=== PATIENT | female | born 1975 | race Caucasian/White ===

== ENCOUNTER 2016-07-17 10:08 | Emergency (ER) | payer OTHER ==
[2016-07-17 10:09] VITALS: BMI 27.4
[2016-07-17 10:16] VITALS: O2SAT 99
--- NOTE | 2016-07-17 11:26 | C.PDOC ---
History Of Present Illness 41-year-old female, presents to the emergency department with complaints of dizziness. Patient states she has been experiencing dizziness intermittently x3 days that is associated with nausea and non-bloody/non-bilious vomiting. Secondary complaint is right knee pain. States she had knee-replacement surgery a few months ago. Patient got out of bed and twisted her knee while episode of dizziness, resulting in swelling and mild pain. Patient denies numbness/weakness , direct knee trauma, fevers, chills, shortness of breath, chest pain, back pain or any other associated symptoms. No other complaints at this time. Time Seen by Provider: 07/17/16 10:22 Chief Complaint (Nursing): Abdominal Pain History Per: Patient History/Exam Limitations: no limitations Current Symptoms Are (Timing): Still Present Past Medical History Reviewed: Historical Data, Nursing Documentation, Vital Signs Vital Signs: Last Vital Signs Temp 98.3 F 07/17/16 10:15 Pulse 97 H 07/17/16 10:15 Resp 18 07/17/16 10:15 BP 122/84 07/17/16 10:15 Pulse Ox 99 07/17/16 12:07 - Medical History PMH: Anxiety, Arthritis, Asthma, Back Problems (Herniated Disc), Depression, Chronic Pain (Back) Surgical History: Back Surgery () Family History: States: Unknown Family Hx - Social History Hx Tobacco Use: Yes Hx Alcohol Use: No Hx Substance Use: No - Immunization History Hx Tetanus Toxoid Vaccination: No Hx Influenza Vaccination: Yes (2015) Hx Pneumococcal Vaccination: Yes Review Of Systems Except As Marked, All Systems Reviewed And Found Negative. Constitutional: Negative for: Fever, Chills Cardiovascular: Negative for: Chest Pain, Palpitations Respiratory: Negative for: Shortness of Breath Gastrointestinal: Positive for: Nausea, Vomiting Musculoskeletal: Positive for: Leg Pain (R knee). Negative for: Neck Pain, Back Pain Neurological: Positive for: Dizziness. Negative for: Weakness, Numbness Physical Exam - Physical Exam Appears: Non-toxic, No Acute Distress Skin: Warm, Dry, No Rash Head: Atraumatic, Normacephalic Eye(s): bilateral: Other (FAST HORIZONTAL NYSTAGMUS. ) Nose: Normal Oral Mucosa: Moist Lips: Normal Appearing Neck: Normal ROM Cardiovascular: Rhythm Regular Respiratory: Normal Breath Sounds, No Accessory Muscle Use Extremity: Swelling (RIGHT KNEE: HEALED VERTICAL SURGICAL SCAR. NO ERYTHEMA/ DISCHARGE. ) Neurological/Psych: Oriented x3, Normal Speech ED Course And Treatment O2 Sat by Pulse Oximetry: 99 Pulse Ox Interpretation: Normal Reevaluation Time: 14:33 Reassessment Condition: Improved Medical Decision Making Medical Decision Making: Impression Dizziness. R knee pain s/p inversion injury. Plan: * X-Ray R Knee * Antivert, Motrin, Zofran * Reassess and Disposition Disposition Counseled Patient/Family Regarding: Diagnosis, Need For Followup, Rx Given - Disposition Referrals: YOUR,PMD [Other] Disposition: HOME/ ROUTINE Disposition Time: 14:33 Condition: IMPROVED Prescriptions: Meclizine [Antivert] 50 mg PO TID PRN #15 tab PRN Reason: Dizziness Ibuprofen [Motrin] 600 mg PO Q6 #30 tab Acetaminophen [Tylenol Extra Strength] 2 tab PO Q6 #30 tablet Ondansetron [Zofran Odt] 4 mg PO TID PRN #9 odt PRN Reason: Nausea/Vomiting Instructions: Vertigo (ED), Knee Sprain (ED) Print Language: SERBIAN - Clinical Impression Clinical Impression: Nausea, Vertigo, Knee sprain - Scribe Statement The provider has reviewed the documentation as recorded by the Graceibkerrie Locke All medical record entries made by the rGaceibkerrie were at my direction and personally dictated by me. I have reviewed the chart and agree that the record accurately reflects my personal performance of the history, physical exam, medical decision making, and the department course for this patient. I have also personally directed, reviewed, and agree with the discharge instructions and disposition.
--- NOTE | 2016-07-17 11:40 | RAD ---
PROCEDURE: Right Knee Radiographs. HISTORY: COMPARISON: None available. FINDINGS: Right knee arthroplasty. No acute displaced fracture or dislocation identified. Soft tissue swelling. Small suprapatellar joint effusion. IMPRESSION: Soft tissue swelling. Small suprapatellar joint effusion. Right knee arthroplasty. No acute displaced fracture or dislocation identified. If symptoms persist or if there is continued clinical concern, x-ray follow-up in 7-10 days should be considered.
[2016-07-17 15:04] VITALS: BP 107/73; PULSE 74; RESP 20; TEMP 98
== END 2016-07-17 15:04 | disposition home or self-care (01) ==
LOC: C.ER 10:08 → UNDOADMOB 11:21 → C.9E 11:21 → C.ER 15:04
DX: R42 Dizziness and giddiness (principal); R11.0 Nausea; S83.91XA Sprain of unspecified site of right knee, initial encounter; X50.1XXA Overexertion from prolonged static or awkward postures, initial encounter

== ENCOUNTER 2016-09-06 12:05 | Observation (INO) | payer OTHER ==
[2016-09-06 12:06] VITALS: BMI 27.4
[2016-09-06] MEDS: Albuterol-Ipratrop 3 mg / 0.5 (3 ml) UD IH SCH ×2 (13:52→14:35)
[2016-09-06] MEDS ORDERED: Albuterol-Ipratrop 3 mg / 0.5 (3 ml) UD ONE ×3 (13:54→15:52)
--- NOTE | 2016-09-06 14:00 | RAD ---
HISTORY: cough brown sputum COMPARISON: X-ray performed 06/16/15 TECHNIQUE: Chest PA and lateral FINDINGS: LUNGS: No focal consolidation. Please note that chest x-ray has limited sensitivity for the detection of pulmonary masses. PLEURA: No significant pleural effusion identified. No definite pneumothorax . CARDIOVASCULAR: The cardiomediastinal silhouette appears within normal limits of size. OSSEOUS STRUCTURES: Cervical fusion hardware. VISUALIZED UPPER ABDOMEN: Unremarkable. OTHER FINDINGS: None. IMPRESSION: No focal consolidation, significant pleural effusion, or definite pneumothorax identified.
--- NOTE | 2016-09-06 15:25 | C.PDOC ---
History Of Present Illness 41 yr old female with PMHx of asthma, presents to the ER stating last night she started coughing and SOB. Patient reports cough with brown sputum. Reports she used her pump which helped but this morning woke up and javier symptoms were back. Patient reports she was admitted 1 month and has multiple prior admission but no history of intubation. Patient denies fever, chest pain, nausea, vomiting, weakness or numbness. Time Seen by Provider: 09/06/16 12:42 Chief Complaint (Nursing): Shortness Of Breath History Per: Patient History/Exam Limitations: no limitations Onset/Duration Of Symptoms: Days (1) Current Symptoms Are (Timing): Still Present Past Medical History Reviewed: Historical Data, Nursing Documentation, Vital Signs Vital Signs: Last Vital Signs Temp 97.5 F L 09/06/16 18:31 Pulse 100 H 09/06/16 18:31 Resp 20 09/06/16 18:31 BP 127/78 09/06/16 18:31 Pulse Ox 97 09/06/16 18:31 - Medical History PMH: Anxiety, Arthritis, Asthma, Back Problems (Herniated Disc), Depression, Chronic Pain (Back) Surgical History: Back Surgery () Family History: States: No Known Family Hx - Social History Hx Tobacco Use: Yes Hx Alcohol Use: No Hx Substance Use: No - Immunization History Hx Influenza Vaccination: Yes (2015) Hx Pneumococcal Vaccination: Yes Review Of Systems Except As Marked, All Systems Reviewed And Found Negative. Constitutional: Negative for: Fever Cardiovascular: Negative for: Chest Pain Respiratory: Positive for: Cough, Shortness of Breath, Sputum (Brown ) Gastrointestinal: Negative for: Nausea, Vomiting Neurological: Negative for: Weakness, Numbness Physical Exam - Physical Exam Appears: Well, Non-toxic, No Acute Distress Skin: Warm, Dry, No Rash Head: Atraumatic, Normacephalic Eye(s): bilateral: Normal Inspection, PERRL, EOMI Oral Mucosa: Moist Neck: Supple Chest: Symmetrical, No Tenderness Cardiovascular: Rhythm Regular, No Murmur Respiratory: Decreased Breath Sounds, Wheezing (Bilateral) Gastrointestinal/Abdominal: Normal Exam, Soft, No Tenderness, No Mass, No Guarding, No Rebound Extremity: Normal ROM, No Swelling Neurological/Psych: Oriented x3, Normal Speech, Normal Motor ED Course And Treatment - Laboratory Results Result Diagrams: 09/06/16 15:55 09/06/16 15:55 O2 Sat by Pulse Oximetry: 100 - Other Rad CXR X-Ray: Viewed By Me, Read By Radiologist Interpretation: HISTORY: cough brown sputum. COMPARISON: X-ray performed 06/15. TECHNIQUE: Chest PA and lateral. FINDINGS: LUNGS: No focal consolidation. Please note that chest x-ray has limited sensitivity for the detection of pulmonary masses. PLEURA: No significant pleural effusion identified. No definite pneumothorax . CARDIOVASCULAR: The cardiomediastinal silhouette appears within normal limits of size. OSSEOUS STRUCTURES: Cervical fusion hardware. VISUALIZED UPPER ABDOMEN: Unremarkable. OTHER FINDINGS: None. IMPRESSION: No focal consolidation, significant pleural effusion, or definite pneumothorax identified. Medical Decision Making Medical Decision Making: PLAN: * CXR * CBC * CMP * HCG * Urinalysis * Albuterol IH * Dilaudid PO * Prednisone PO * Solumedrol IVP Post multiple treatments still SOB with any exertion, with diffuse ronchi Pt will need observation for SOB/Asthma Discussed with dr Cosby who agrees with plan Disposition - Disposition Disposition: HOSPITALIZED Disposition Time: 16:00 Condition: FAIR - Clinical Impression Clinical Impression: Chronic pain, Asthma exacerbation - Scribe Statement The provider has reviewed the documentation as recorded by the Graceibkerrie Rodriguez Provider Attestation: All medical record entries made by the Graceibkerrie were at my direction and personally dictated by me. I have reviewed the chart and agree that the record accurately reflects my personal performance of the history, physical exam, medical decision making, and the department course for this patient. I have also personally directed, reviewed, and agree with the discharge instructions and disposition.
[2016-09-06 16:00] LABS: BASO % 0.4 % (0.0-2.0); EOS % 0.7 % (0.0-4.0); HEMATOCRIT 43.7 % (34.0-47.0); LYMPH # 1.2 K/uL (1.0-4.3); LYMPH % 23.5 % (20.0-40.0); MEAN CELL VOLUME 85.5 fL (81.0-99.0); MEAN CORPUSCULAR HEMOGLOBIN 28.4 pg (27.0-31.0); MEAN CORPUSCULAR HGB CONC 33.2 g/dL (33.0-37.0); MEAN PLATELET VOLUME 8.4 fL (7.2-11.7); MONO # 0.2 K/uL (0.0-0.8); MONO % 4.2 % (0.0-10.0); RED CELL DISTRIBUTION WIDTH 13.7 % (11.5-14.5)
[2016-09-06 16:06] LABS: CHLORIDE 103 mmol/L (98-107); SODIUM 136 mmol/L (132-148)
[2016-09-06 16:07] LABS: POTASSIUM 3.7 mmol/L (3.6-5.2)
[2016-09-06 16:09] LABS: ALB/GLOB RATIO 1.3 (1.0-2.1); ALKALINE PHOSPHATASE 67 U/L (38-126); AST/SGOT 20 U/L (14-36); BILIRUBIN,TOTAL 0.5 mg/dL (0.2-1.3); BLOOD UREA NITROGEN 12 mg/dL (7-17); CARBON DIOXIDE 22 mmol/L (22-30); GFR AFRICAN-AMERICAN > 60; TOTAL PROTEIN 6.9 g/dL (6.3-8.3)
[2016-09-06 16:10] LABS: ALT/SGPT 21 U/L (9-52); CALCIUM 8.4 mg/dl (8.6-10.4); GLUCOSE,RANDOM 107 mg/dL (65-105)
[2016-09-06] MEDS: Albuterol 0.083% Inhal Sol (2.5 mg/3 mL) UD INH SCH ×3 (16:10→16:30)
[2016-09-06] MEDS ORDERED: Magnesium Sulfate 1 gm in D5W 1 GM/100 ML BAG IV ONE ×2 (16:54→16:55)
[2016-09-06] MEDS ORDERED: Magnesium Sulfate 1 gm in D5W 2 GM/200 ML BAG IVPB ONE (17:15)
[2016-09-06] MEDS ORDERED: MethylPREDNISolone 40 mg Vial IVP STA (18:54)
[2016-09-06] MEDS ORDERED: MethylPREDNISolone 40 mg Vial IV SCH (22:00)
[2016-09-06] MEDS: MethylPREDNISolone 40 mg Vial IVP SCH (22:13)
[2016-09-06] MEDS: Azithromycin 500 MG in Sodium Chloride 0.9% 250 ML IVPB SCH (22:13)
[2016-09-07] MEDS: Albuterol-Ipratrop 3 mg / 0.5 (3 ml) UD INH SCH ×4 (01:05→19:43)
--- NOTE | 2016-09-07 04:24 | CP.PCM.PN ---
Subjective - Date & Time of Evaluation Date of Evaluation: 09/07/16 Time of Evaluation: 04:21 - Subjective Subjective: HOUSE DOC NOTE House doc was paged as patient was having multiple episodes of emesis. Patient was given 1 dose of zofran but vomiting and nausea did not subside. Nursing was concerned patient was having bilious emesis but when I examined vomitus it looked more like food contents and yellow. Patient reported some epigastric pain. Patient was kept NPO and started on NS @ 100cc/hr. Protonix 40mg ivp was ordered. Patient's vitals were WNL and she was resting comfortably although a bit anxious. Abdominal exam : Patient's abdomen was soft, nondistended, tender to deep palpation diffusely. No guarding or rigidity or palpable mass. Bowel sounds present. Will contact primary physician in the AM. Objective - Vital Signs/Intake and Output Vital Signs (last 24 hours): Temp Pulse Resp BP Pulse Ox 98.2 F 91 H 20 149/81 96 09/07/16 00:00 09/07/16 00:00 09/07/16 00:00 09/07/16 00:00 09/07/16 00:00 Intake and Output: 09/06/16 09/07/16 18:59 06:59 Intake Total 200 370 Balance 200 370 - Medications Medications: Current Medications Albuterol/Ipratropium (Duoneb 3 Mg/0.5 Mg (3 Ml) Ud) 3 ml INH RQ6 [facility] Last Admin: 09/07/16 01:05 Dose: Not Given Baclofen (Lioresal) 20 mg PO DAILY [facility] Docusate Sodium (Colace) 100 mg PO BID [facility] Last Admin: 09/06/16 22:14 Dose: 100 mg Enoxaparin Sodium (Lovenox) 40 mg SC DAILY [facility] Fentanyl (Duragesic) 1 patch TD Q72H [facility] Gabapentin (Neurontin) 400 mg PO TID [facility] Haloperidol (Haldol) 0.5 mg PO HS [facility] Last Admin: 09/06/16 22:09 Dose: 0.5 mg Hydromorphone HCl (Dilaudid) 4 mg PO Q8H [facility] Last Admin: 09/06/16 23:16 Dose: 4 mg Azithromycin 500 mg/ Sodium (Chloride) 250 mls @ 250 mls/hr IVPB DAILY [facility] Last Admin: 09/06/16 22:13 Dose: 250 mls/hr Sodium Chloride (Sodium Chloride 0.9%) 1,000 mls @ 100 mls/hr IV .Q10H [facility] Methylprednisolone (Solu-Medrol) 40 mg IVP Q12H [facility] Last Admin: 09/06/16 22:13 Dose: 40 mg Pantoprazole Sodium (Protonix Inj) 40 mg IVP STAT STA Stop: 09/07/16 04:21 Paroxetine HCl (Paxil) 10 mg PO DAILY [facility] Pneumococcal Polyvalent Vaccine (Pneumovax 23 Vaccine) 0.5 ml IM .ONCE ONE Stop: 09/08/16 10:01
[2016-09-07] MEDS: Sodium Chloride 0.9% 1,000 ML IV SCH ×2 (04:43→14:30)
[2016-09-07 08:25] LABS: MEAN CORPUSCULAR HEMOGLOBIN 28.7 pg (27.0-31.0); MEAN CORPUSCULAR HGB CONC 33.3 g/dL (33.0-37.0); MEAN PLATELET VOLUME 8.5 fL (7.2-11.7); RED CELL DISTRIBUTION WIDTH 13.5 % (11.5-14.5)
[2016-09-07 08:32] LABS: WHITE BLOOD COUNT 18.6 K/uL (4.8-10.8)
[2016-09-07 08:46] LABS: CHLORIDE 105 mmol/L (98-107)
[2016-09-07 08:47] LABS: POTASSIUM 4.3 mmol/L (3.6-5.2); SODIUM 140 mmol/L (132-148)
[2016-09-07 08:49] LABS: ALB/GLOB RATIO 1.3 (1.0-2.1); ALKALINE PHOSPHATASE 61 U/L (38-126); AST/SGOT 15 U/L (14-36); BILIRUBIN,TOTAL 0.4 mg/dL (0.2-1.3); CARBON DIOXIDE 27 mmol/L (22-30); GFR AFRICAN-AMERICAN > 60; TOTAL PROTEIN 6.8 g/dL (6.3-8.3)
[2016-09-07 08:50] LABS: ALT/SGPT 17 U/L (9-52); BLOOD UREA NITROGEN 14 mg/dL (7-17); CALCIUM 8.4 mg/dl (8.6-10.4); GLUCOSE,RANDOM 137 mg/dL (65-105)
[2016-09-07] MEDS: Azithromycin 500 MG in Sodium Chloride 0.9% 250 ML IVPB SCH (10:35)
[2016-09-07] MEDS: MethylPREDNISolone 40 mg Vial IVP SCH ×3 (11:00→21:25)
--- NOTE | 2016-09-07 11:02 | CT ---
PROCEDURE: CT chest dated 09/06/2016 HISTORY: Rule out pneumonia. COMPARISON: Comparison made with prior study dated 12/11/2014 TECHNIQUE: Contiguous axial images were obtained through the chest without intravenous contrast enhancement. Sagittal and coronal reconstructions were performed. Radiation dose (DLP): 278.69 mGy-cm. This CT exam was performed using one or more of the following dose reduction techniques: Automated exposure control, adjustment of the mA and/or kV according to patient size, and/or use of iterative reconstruction technique. FINDINGS: LUNGS: There is a somewhat linear area of opacification right lower lobe likely representing subsegmental atelectasis. . The possibility of resolving or developing infiltrate not excluded. Clinic correlation follow-up chest x-ray is recommended to assess resolution. There is also a mild linear/ curvilinear atelectasis and or scarring in the lung bases. Vague mosaic appearing ground-glass opacities in the lower lung richards could reflect of sequela of air trapping - small airways disease or possibly pneumonitis. . No evidence of pneumothorax. No significant effusion MEDIASTINUM: Heart size is upper limits of normal/ borderline enlarged. No pericardial effusion. Motion artifact limits evaluation of aortic ascending and descending thoracic aorta diameter however no evidence of large aneurysm. No significant mediastinal adenopathy. Evaluation for hilar adenopathy is limited due to the lack of circulating intravenous contrast material. There is a tiny hiatal hernia. PLEURA: No pleural fluid. No pneumothorax. BONES: No acute compression fractures nor retropulsed fragments visualized vertebral body segments appear intact without evidence of acute or chronic compression fractures nor retropulsed fragments. Minor multilevel degenerative spondylosis. Note made of ACDF changes rolf involving the C6 and C7 segments. UPPER ABDOMEN: Visualized portions of the liver and spleen appear grossly unremarkable. Large amount of of food debris liquid and air is present within the stomach. Gallbladder appears to be no contracted and poorly delineated OTHER FINDINGS: None. IMPRESSION: There is a small area of linear opacification right lower lung field which could represent subsegmental atelectasis. Possibility of resolving or developing infiltrate not excluded. Clinical correlation recommended. Followup chest radiographs recommended to assess for resolution. Vague mosaic appearing ground-glass opacities predominately involving the lower lobes could reflect sequela of air trapping-small airway disease or possibly pneumonitis. Clinic correlation recommended. ACDF changes C6-C7 level.
--- NOTE | 2016-09-07 14:56 | RAD ---
HISTORY: abdominal pain COMPARISON: Comparison made with CT scan abdomen and pelvis 05/31/2016. FINDINGS: BOWEL: There are multiple on air-filled nondistended loops of small bowel nonspecific. Large amount of stool is present within the right colon and probably the cecum on or possibly rectosigmoid consistent with constipation. . BONES: Osseous structures appear grossly unremarkable. OTHER FINDINGS: None. IMPRESSION: Findings suggest constipation as above. .
[2016-09-07 16:16] LABS: RBC URINE < 1 /hpf (0-3); URINE BACTERIA RARE (<OCC); URINE BILIRUBIN NEGATIVE (NEGATIVE); URINE BLOOD 1+ (NEGATIVE); URINE COLOR Yellow (YELLOW); URINE GLUCOSE (UA) 3+ mg/dL (Normal); URINE KETONE TRACE mg/dL (NEGATIVE); URINE LEUKOCYTE ESTERASE NEG Leu/uL (Negative); URINE PROTEIN NEGATIVE (NEGATIVE); URINE UROBILINOGEN NORMAL mg/dL (0.2-1.0); WBC URINE 2 /hpf (0-5)
[2016-09-07] MEDS: Enoxaparin 40 mg Syringe SC SCH (19:53)
--- NOTE | 2016-09-07 22:27 | CP.PCM.HP ---
History of Present Illness - History of Present Illness History of Present Illness: A 41 yr old female with hx of chronic lumbar and cervical disc disease s\\p sx on pain meds ,smoker,depression\\anxiety on meds came with hx of SOB ad wheezing for few days with cold symptoms.took OTC meds was not helping after being admitted feeling nausea ,vomiting mostly clear,with food Present on Admission - Present on Admission Any Indicators Present on Admission: No Review of Systems - Constitutional Constitutional: Malaise, Weight Loss. absent: Chills, Fever Additional comments: notes she lost 60 lbs over few months - EENT Nose/Mouth/Throat: absent: Nasal Congestion, Sore Throat - Cardiovascular Cardiovascular: Dyspnea. absent: Chest Pain, Leg Edema, Rapid Heart Rate - Respiratory Respiratory: Cough, Wheezing, Chest Congestion, Excessive Mucous Production. absent: Hemoptysis - Gastrointestinal Gastrointestinal: Abdominal Pain, Constipation, Nausea, Vomiting, Other - Genitourinary Genitourinary: absent: Nocturia, Urinary Frequency - Musculoskeletal Musculoskeletal: Arthralgias, Limited Range of Motion, Neck Pain, Tingling - Integumentary Integumentary: absent: Alopecia, Lesions, Sores - Neurological Neurological: Headaches. absent: Dizziness - Psychiatric Psychiatric: absent: Hallucinations Past Patient History - Infectious Disease Hx of Infectious Diseases: None - Past Medical History & Family History Past Medical History?: Yes - Past Social History Smoking Status: Heavy Smoker > 10 Cigarettes Daily - CARDIAC Hx Cardiac Disorders: No - PULMONARY Hx Asthma: Yes - NEUROLOGICAL Hx Neurological Disorder: No - HEENT Hx HEENT Problems: No Other/Comment: uses eyelasses - RENAL Hx Chronic Kidney Disease: No - ENDOCRINE/METABOLIC Hx Endocrine Disorders: No - HEMATOLOGICAL/ONCOLOGICAL Hx Blood Disorders: No - INTEGUMENTARY Hx Dermatological Problems: No - MUSCULOSKELETAL/RHEUMATOLOGICAL Hx Arthritis: Yes - GASTROINTESTINAL Hx Gastrointestinal Disorders: No - GENITOURINARY/GYNECOLOGICAL Hx Genitourinary Disorders: No - PSYCHIATRIC Hx Anxiety: Yes Hx Depression: Yes Hx Substance Use: No - SURGICAL HISTORY Hx Surgeries: Yes (SEE COMMENT) Hx Orthopedic Surgery: Yes Other/Comment: CERVICAL SX WITH HARDWARE; TOTAL RIGHT KNEE REPLACEMENT. "laminectomy and cervical fusion" - ANESTHESIA Hx Anesthesia: Yes Hx Anesthesia Reactions: No Hx Malignant Hyperthermia: No Meds Allergies/Adverse Reactions: Allergies Allergy/AdvReac Type Severity Reaction Status Date / Time No Known Allergies Allergy Verified 09/06/16 12:33 Physical Exam - Constitutional Appears: No Acute Distress - Head Exam Head Exam: NORMAL INSPECTION - Eye Exam Eye Exam: EOMI, PERRL. absent: Scleral icterus - ENT Exam ENT Exam: Mucous Membranes Moist, Normal Exam - Neck Exam Neck exam: Negative for: Lymphadenopathy - Respiratory Exam Respiratory Exam: Wheezes. absent: Chest Wall Tenderness, Rhonchi Additional comments: RLL rales - Cardiovascular Exam Cardiovascular Exam: REGULAR RHYTHM, +S1, +S2. absent: JVD - GI/Abdominal Exam GI & Abdominal Exam: Normal Bowel Sounds, Soft, Tenderness Additional comments: epigastric - Extremities Exam Extremities exam: Positive for: normal inspection, pedal pulses present - Back Exam Back exam: NORMAL INSPECTION - Neurological Exam Neurological exam: Alert, Oriented x3 - Psychiatric Exam Psychiatric exam: Normal Mood - Skin Skin Exam: Intact Results - Vital Signs Recent Vital Signs: Last Vital Signs Temp 98.0 F 09/07/16 15:11 Pulse 71 09/07/16 15:11 Resp 18 09/07/16 15:11 BP 126/83 09/07/16 15:11 Pulse Ox 96 09/07/16 15:11 - Labs Result Diagrams: 09/07/16 08:17 09/07/16 08:17 Labs: Laboratory Results - last 24 hr 09/07/16 09/07/16 09/07/16 08:17 08:17 08:17 WBC 18.6 H D RBC 4.99 Hgb 14.3 Hct 43.0 MCV 86.0 MCH 28.7 MCHC 33.3 RDW 13.5 Plt Count 246 MPV 8.5 Sodium 140 Potassium 4.3 Chloride 105 Carbon Dioxide 27 Anion Gap 14 BUN 14 Creatinine 0.6 L Est GFR ( Amer) > 60 Est GFR (Non-Af Amer) > 60 Random Glucose 137 H Hemoglobin A1c 5.6 Calcium 8.4 L Total Bilirubin 0.4 AST 15 ALT 17 Alkaline Phosphatase 61 Total Protein 6.8 Albumin 3.8 Globulin 2.9 Albumin/Globulin Ratio 1.3 Urine Color Urine Clarity Urine pH Ur Specific [place] Urine Protein Urine Glucose (UA) Urine Ketones Urine Blood Urine Nitrate Urine Bilirubin Urine Urobilinogen Ur Leukocyte Esterase Urine WBC (Auto) Urine RBC (Auto) Ur Squamous Epith Cells Urine Bacteria Urine HCG, Qual 09/07/16 15:57 WBC RBC Hgb Hct MCV MCH MCHC RDW Plt Count MPV Sodium Potassium Chloride Carbon Dioxide Anion Gap BUN Creatinine Est GFR ( Amer) Est GFR (Non-Af Amer) Random Glucose Hemoglobin A1c Calcium Total Bilirubin AST ALT Alkaline Phosphatase Total Protein Albumin Globulin Albumin/Globulin Ratio Urine Color Yellow Urine Clarity Clear Urine pH 6.0 Ur Specific [place] 1.022 Urine Protein Negative Urine Glucose (UA) 3+ H Urine Ketones Trace Urine Blood 1+ H Urine Nitrate Negative Urine Bilirubin Negative Urine Urobilinogen Normal Ur Leukocyte Esterase Neg Urine WBC (Auto) 2 Urine RBC (Auto) < 1 Ur Squamous Epith Cells 4 Urine Bacteria Rare Urine HCG, Qual Negative - Imaging and Cardiology CT scan - chest Status: Report reviewed by me Chest x-ray Status: Report reviewed by me Assessment & Plan (1) Asthma exacerbation Status: Acute (2) Nausea and vomiting Status: Acute (3) Weight loss Status: Acute (4) Tobacco use Status: Chronic (5) Chronic low back pain Status: Acute (6) Constipation Status: Acute - Assessment and Plan (Free Text) Plan: 1. iv solumedrol 2. iv zithromax being smoker CT chest showed- possible infiltrate \\pneumonitis 3. stool softeners tap water enema AXR 4. nausea and vomiting NPO CT abdomen and pelvis -as she has significant weight loss ivf panteprazole 5.resume pain meds Decision To Admit - Pt Status Changed To: Hospital Disposition Of: Inpatient - Admit Certification Admit to Inpatient:: After my assessment, the patient will require hospitalization for at least two midnights. This is because of the severity of symptoms shown, intensity of services needed, and/or the medical risk in this patient being treated as an outpatient. - InPatient: Physician Admission Certification:: as above - . Bed Request Type: Regular (aurelio) Admitting Physician: Farzana Cosby
[2016-09-08 01:04] VITALS: RESP 20
[2016-09-08] MEDS: Albuterol-Ipratrop 3 mg / 0.5 (3 ml) UD INH SCH ×4 (02:00→19:33)
[2016-09-08 08:07] LABS: CARCINOEMBRYONIC ANTIGEN 0.4 ng/mL (0-3.0)
[2016-09-08 08:11] LABS: CA 19-9 4.2 U/mL (0-37)
[2016-09-08] MEDS ORDERED: Iohexol 240 (50 ml) PO ONE (09:00)
[2016-09-08] MEDS: Azithromycin 500 MG in Sodium Chloride 0.9% 250 ML IVPB SCH (09:52)
[2016-09-08] MEDS: Enoxaparin 40 mg Syringe SC SCH (09:53)
[2016-09-08] MEDS ORDERED: Pneumococcal 23-Valent Vaccine IM ONE (10:00)
[2016-09-08] MEDS ORDERED: Iodixanol 320 MG/ML 100 ML BOTTLE IV ONE (14:05)
--- NOTE | 2016-09-08 15:35 | CT ---
PROCEDURE: CT Abdomen and Pelvis with contrast HISTORY: weight loss and abdomnal pain COMPARISON: 05/31/2016 TECHNIQUE: Contrast dose: 100 mL Visipaque 320 Radiation dose: Total exam DLP = 419.36 mGy-cm. This CT exam was performed using one or more of the following dose reduction techniques: Automated exposure control, adjustment of the mA and/or kV according to patient size, and/or use of iterative reconstruction technique. FINDINGS: LOWER THORAX: Nonspecific mosaic attenuation in both lower lobes. Linear scar/ atelectasis in both lower lobes. LIVER: Mild hepatomegaly. No mass. Smooth contour. No biliary ductal dilatation. Mild periportal edema, nonspecific. GALLBLADDER AND BILE DUCTS: Gallbladder wall thickening. No calcified gallstones identified. Recommend correlation with right upper quadrant abdominal ultrasound. PANCREAS: Unremarkable. No gross lesion or ductal dilatation. SPLEEN: Upper limits of normal for size. No focal mass. ADRENALS: Unremarkable. No mass. KIDNEYS AND URETERS: Mid left renal cortical cyst, 1.9 cm diameter. Low-attenuation lesion lower pole left kidney, approximately 2.8 cm. There is irregular border to a portion of this low-attenuation lesion. Correlating with renal ultrasound examination of 05/31/2016, this is suspicious for renal neoplasm. This could also represent complex cyst with internal septation based upon the ultrasound findings of 05/31/2016. Please note that this is unchanged in size and morphology from examination of 11/19/2015. VASCULATURE: Unremarkable. No aortic aneurysm. BOWEL: Unremarkable. No obstruction. No gross mural thickening. APPENDIX: Normal appendix. PERITONEUM: Possible small amount of fluid in left side of cul-de-sac LYMPH NODES: Unremarkable. No enlarged lymph nodes. BLADDER: Unremarkable. REPRODUCTIVE: Small anterior subserosal uterine fibroid, 1.2 cm. BONES: No acute fracture. OTHER FINDINGS: None. IMPRESSION: Mild hepatomegaly. Borderline spleen size. Periportal edema, nonspecific. Gallbladder wall thickening. Recommend correlation with right upper quadrant abdominal ultrasound examination. Linear scar/ atelectasis and nonspecific mosaic attenuation in both lower lobes. 2.8 cm low-density left lower pole renal mass, possibly complex cyst versus cystic neoplasm. Note absent change in size compared to 11/18.
[2016-09-08] MEDS: Sodium Chloride 0.9% 1,000 ML IV SCH (19:38)
[2016-09-08] MEDS: MethylPREDNISolone 40 mg Vial IVP SCH (21:05)
[2016-09-09] MEDS: Albuterol-Ipratrop 3 mg / 0.5 (3 ml) UD INH SCH ×3 (02:00→14:34)
[2016-09-09] MEDS: Sodium Chloride 0.9% 1,000 ML IV SCH ×3 (05:39→16:03)
[2016-09-09] MEDS: Enoxaparin 40 mg Syringe SC SCH (09:49)
[2016-09-09] MEDS: Azithromycin 500 MG in Sodium Chloride 0.9% 250 ML IVPB SCH (09:54)
[2016-09-09 11:52] LABS: BASO % 0.4 % (0.0-2.0); EOS % 0.2 % (0.0-4.0); HEMATOCRIT 40.2 % (34.0-47.0); LYMPH # 2.4 K/uL (1.0-4.3); LYMPH % 25.5 % (20.0-40.0); MEAN CELL VOLUME 85.8 fL (81.0-99.0); MEAN CORPUSCULAR HEMOGLOBIN 28.6 pg (27.0-31.0); MEAN CORPUSCULAR HGB CONC 33.3 g/dL (33.0-37.0); MEAN PLATELET VOLUME 9.1 fL (7.2-11.7); MONO # 0.7 K/uL (0.0-0.8); RED CELL DISTRIBUTION WIDTH 13.5 % (11.5-14.5); WHITE BLOOD COUNT 9.4 K/uL (4.8-10.8)
[2016-09-09 12:05] LABS: CHLORIDE 104 mmol/L (98-107); SODIUM 136 mmol/L (132-148)
[2016-09-09 12:06] LABS: POTASSIUM 3.4 mmol/L (3.6-5.2)
[2016-09-09 12:08] LABS: ALB/GLOB RATIO 1.1 (1.0-2.1); ALKALINE PHOSPHATASE 67 U/L (38-126); ALT/SGPT 37 U/L (9-52); AST/SGOT 30 U/L (14-36); BILIRUBIN,TOTAL 0.3 mg/dL (0.2-1.3); BLOOD UREA NITROGEN 6 mg/dL (7-17); CARBON DIOXIDE 25 mmol/L (22-30); GFR AFRICAN-AMERICAN > 60; GLUCOSE,RANDOM 87 mg/dL (65-105); TOTAL PROTEIN 5.8 g/dL (6.3-8.3)
[2016-09-09 12:09] LABS: CALCIUM 8.1 mg/dl (8.6-10.4)
[2016-09-09] MEDS: MethylPREDNISolone 40 mg Vial IVP SCH (13:17)
[2016-09-09 15:19] VITALS: BP 119/74; PULSE 68; TEMP 98; O2SAT 96
--- NOTE | 2016-09-09 16:42 | CP.PCM.DIS ---
Provider - Provider Date of Admission: 09/06/16 16:55 Attending physician: Farzana Cosby MD Diagnosis - Discharge Diagnosis (1) Asthma exacerbation Status: Acute (2) Nausea and vomiting Status: Acute (3) Weight loss Status: Acute (4) Tobacco use Status: Chronic (5) Chronic low back pain Status: Acute (6) Constipation Status: Acute Hospital Course - Lab Results Lab Results: Most Recent Lab Values WBC 9.4 K/uL (4.8-10.8) 09/09/16 11:43 RBC 4.68 Mil/uL (3.80-5.20) 09/09/16 11:43 Hgb 13.4 g/dL (11.0-16.0) 09/09/16 11:43 Hct 40.2 % (34.0-47.0) 09/09/16 11:43 MCV 85.8 fL (81.0-99.0) 09/09/16 11:43 MCH 28.6 pg (27.0-31.0) 09/09/16 11:43 MCHC 33.3 g/dL (33.0-37.0) 09/09/16 11:43 RDW 13.5 % (11.5-14.5) 09/09/16 11:43 Plt Count 200 K/uL (130-400) 09/09/16 11:43 MPV 9.1 fL (7.2-11.7) 09/09/16 11:43 Neut % (Auto) 66.9 % (50.0-75.0) 09/09/16 11:43 Lymph % (Auto) 25.5 % (20.0-40.0) 09/09/16 11:43 [place] % (Auto) 7.0 % (0.0-10.0) 09/09/16 11:43 Eos % (Auto) 0.2 % (0.0-4.0) 09/09/16 11:43 Baso % (Auto) 0.4 % (0.0-2.0) 09/09/16 11:43 Neut # 6.3 K/uL (1.8-7.0) 09/09/16 11:43 Lymph # 2.4 K/uL (1.0-4.3) 09/09/16 11:43 [place] # 0.7 K/uL (0.0-0.8) 09/09/16 11:43 Eos # 0.0 K/uL (0.0-0.7) 09/09/16 11:43 Baso # 0.0 K/uL (0.0-0.2) 09/09/16 11:43 Sodium 136 mmol/L (132-148) 09/09/16 11:43 Potassium 3.4 mmol/L (3.6-5.2) L 09/09/16 11:43 Chloride 104 mmol/L (98-107) 09/09/16 11:43 Carbon Dioxide 25 mmol/L (22-30) 09/09/16 11:43 Anion Gap 10 (10-20) 09/09/16 11:43 BUN 6 mg/dL (7-17) L 09/09/16 11:43 Creatinine 0.5 MG/DL (0.7-1.2) L 09/09/16 11:43 Est GFR ( Amer) > 60 09/09/16 11:43 Est GFR (Non-Af Amer) > 60 09/09/16 11:43 Random Glucose 87 mg/dL (65-105) 09/09/16 11:43 Hemoglobin A1c 5.6 % (4.2-6.5) 09/07/16 08:17 Calcium 8.1 mg/dl (8.6-10.4) L 09/09/16 11:43 Total Bilirubin 0.3 mg/dL (0.2-1.3) 09/09/16 11:43 AST 30 U/L (14-36) 09/09/16 11:43 ALT 37 U/L (9-52) 09/09/16 11:43 Alkaline Phosphatase 67 U/L (38-126) 09/09/16 11:43 Total Protein 5.8 g/dL (6.3-8.3) L 09/09/16 11:43 Albumin 3.0 g/dL (3.5-5.0) L D 09/09/16 11:43 Globulin 2.8 gm/dL (2.2-3.9) 09/09/16 11:43 Albumin/Globulin Ratio 1.1 (1.0-2.1) 09/09/16 11:43 Carcinoembryonic Ag 0.4 ng/mL (0-3.0) 09/08/16 07:12 CA 19-9 Antigen 4.2 U/mL (0-37) 09/08/16 07:12 CA 125 Antigen < 5.5 U/mL (0-35) 09/08/16 07:12 Urine Color Yellow (YELLOW) 09/07/16 15:57 Urine Clarity Clear (Clear) 09/07/16 15:57 Urine pH 6.0 (5.0-8.0) 09/07/16 15:57 Ur Specific Frannie 1.022 (1.003-1.030) 09/07/16 15:57 Urine Protein Negative mg/dL (NEGATIVE) 09/07/16 15:57 Urine Glucose (UA) 3+ mg/dL (Normal) H 09/07/16 15:57 Urine Ketones Trace mg/dL (NEGATIVE) 09/07/16 15:57 Urine Blood 1+ (NEGATIVE) H 09/07/16 15:57 Urine Nitrate Negative (NEGATIVE) 09/07/16 15:57 Urine Bilirubin Negative (NEGATIVE) 09/07/16 15:57 Urine Urobilinogen Normal mg/dL (0.2-1.0) 09/07/16 15:57 Ur Leukocyte Esterase Neg Idania/uL (Negative) 09/07/16 15:57 Urine WBC (Auto) 2 /hpf (0-5) 09/07/16 15:57 Urine RBC (Auto) < 1 /hpf (0-3) 09/07/16 15:57 Ur Squamous Epith Cells 4 /hpf (0-5) 09/07/16 15:57 Urine Bacteria Rare (<OCC) 09/07/16 15:57 Urine HCG, Qual Negative (NEGATIVE) 09/07/16 15:57 Discharge Exam - Head Exam Head Exam: NORMAL INSPECTION Discharge Plan - Follow Up Plan Condition: FAIR Disposition: HOME/ ROUTINE
--- NOTE | 2016-09-09 16:42 | CP.PCM.PN ---
Subjective - Date & Time of Evaluation Date of Evaluation: 09/08/16 Time of Evaluation: 10:00 Objective - Vital Signs/Intake and Output Vital Signs (last 24 hours): Temp Pulse Resp BP Pulse Ox 98 F 68 20 119/74 96 09/09/16 15:16 09/09/16 15:16 09/09/16 15:16 09/09/16 15:16 09/09/16 15:16 Intake and Output: 09/09/16 09/09/16 06:59 18:59 Intake Total 2200 730 Balance 2200 730 - Medications Medications: Current Medications Albuterol/Ipratropium (Duoneb 3 Mg/0.5 Mg (3 Ml) Ud) 3 ml INH RQ6 [facility] Last Admin: 09/09/16 14:34 Dose: 3 ml Baclofen (Lioresal) 20 mg PO DAILY [facility] Last Admin: 09/09/16 09:49 Dose: 20 mg Diphenhydramine HCl (Benadryl) 50 mg PO HS PRN PRN Reason: Sleep Last Admin: 09/07/16 22:15 Dose: 50 mg Docusate Sodium (Colace) 100 mg PO BID [facility] Last Admin: 09/09/16 09:49 Dose: 100 mg Enoxaparin Sodium (Lovenox) 40 mg SC DAILY [facility] Last Admin: 09/09/16 09:49 Dose: 40 mg Fentanyl (Duragesic) 1 patch TD Q72H [facility] Last Admin: 09/08/16 09:53 Dose: 1 patch Gabapentin (Neurontin) 400 mg PO TID [facility] Last Admin: 09/09/16 13:18 Dose: 400 mg Haloperidol (Haldol) 0.5 mg PO HS [facility] Last Admin: 09/08/16 21:06 Dose: 0.5 mg Azithromycin 500 mg/ Sodium (Chloride) 250 mls @ 250 mls/hr IVPB DAILY [facility] Last Admin: 09/09/16 09:54 Dose: 250 mls/hr Sodium Chloride (Sodium Chloride 0.9%) 1,000 mls @ 100 mls/hr IV .Q10H [facility] Last Admin: 09/09/16 16:03 Dose: Not Given Lactulose (Enulose) 20 gm PO HS [facility] Last Admin: 09/08/16 21:07 Dose: Not Given Methylprednisolone (Solu-Medrol) 40 mg IVP Q12H [facility] Last Admin: 09/09/16 13:17 Dose: 40 mg Morphine Sulfate (Morphine) 2 mg IVP Q6H PRN PRN Reason: SEVERE PAIN 8-10 Last Admin: 09/09/16 16:02 Dose: 2 mg Paroxetine HCl (Paxil) 10 mg PO DAILY [facility] Last Admin: 09/09/16 09:49 Dose: 10 mg - Labs Labs: 09/09/16 11:43 09/09/16 11:43 Assessment and Plan (1) Asthma exacerbation Status: Acute (2) Nausea and vomiting Status: Acute (3) Weight loss Status: Acute (4) Tobacco use Status: Chronic (5) Chronic low back pain Status: Acute (6) Constipation Status: Acute
== END 2016-09-09 20:01 | disposition home or self-care (01) ==
LOC: C.ER 12:05 → C.9E 16:55 → C.5T 17:29
PROVIDERS: ADMIT Internal Medicine; ATTEND Internal Medicine
DX: J45.901 Unspecified asthma with (acute) exacerbation (principal); G89.29 Other chronic pain; K59.00 Constipation, unspecified; Z72.0 Tobacco use; M54.5 Low back pain
CPT/HCPCS: 36415; 71020; 71250; 74000; 74177; 80053; 81001; 82378; 83036; 84703; 85025; 85027; 86301; 86304; 94150; 94640; 94760; 96374; 99285; C9113; G0378; J0456; J1630; J1650; J2270; J2405; J2920; J2930; J3475; J7040; J7050; Q9966; Q9967

== ENCOUNTER 2016-10-08 14:30 | Emergency (ER) | payer OTHER ==
[2016-10-08 14:30] VITALS: BMI 27.4
[2016-10-08 14:44] VITALS: RESP 18
[2016-10-08] MEDS ORDERED: Sodium Chloride 0.9% 1,000 ML IV ONE (15:00)
--- NOTE | 2016-10-08 15:07 | C.PDOC ---
History Of Present Illness 41 year old female presents to the ED with complaints of left flank pain that radiates forward. Patient notes pain began yesterday but has worsened today and has been seen in this ED in the past for similar symptoms. She notes a history of chronic back pain and one episode of vomiting and dysruia. Patient denies any hematuria or fever. Time Seen by Provider: 10/08/16 14:45 Chief Complaint (Nursing): Back Pain History Per: Patient History/Exam Limitations: no limitations Onset/Duration Of Symptoms: Days (since yesterday ) Current Symptoms Are (Timing): Still Present Quality Of Discomfort: "Pain" Previous Symptoms: Chronic Pain (chronic back pain ) Recent travel outside of the [place]: No Past Medical History Reviewed: Historical Data, Nursing Documentation, Vital Signs Vital Signs: Last Vital Signs Temp 98.6 F 10/08/16 17:04 Pulse 81 10/08/16 17:04 Resp 18 10/08/16 17:04 BP 117/81 10/08/16 17:04 Pulse Ox 99 10/08/16 17:04 - Medical History PMH: Anxiety, Arthritis, Asthma, Back Problems (Herniated Disc), Depression, Chronic Pain (Back) Surgical History: Back Surgery () Family History: States: Unknown Family Hx - Social History Hx Tobacco Use: Yes Hx Alcohol Use: No Hx Substance Use: No - Immunization History Hx Tetanus Toxoid Vaccination: No Hx Influenza Vaccination: Yes (2015) Hx Pneumococcal Vaccination: Yes Review Of Systems Constitutional: Negative for: Fever, Chills Cardiovascular: Negative for: Chest Pain, Palpitations Gastrointestinal: Positive for: Vomiting, Abdominal Pain (left flank pain ). Negative for: Diarrhea Genitourinary: Positive for: Dysuria. Negative for: Hematuria Physical Exam - Physical Exam Appears: Non-toxic, No Acute Distress Skin: Warm, Dry Head: Atraumatic Eye(s): bilateral: Normal Inspection Oral Mucosa: Moist Neck: Supple Chest: Symmetrical, No Deformity Cardiovascular: Rhythm Regular Respiratory: Normal Breath Sounds, No Accessory Muscle Use, No Rales, No Rhonchi , No Wheezing Gastrointestinal/Abdominal: Soft, Tenderness (left flank tenderness ), No Distention, No Guarding, No Rebound Extremity: Normal ROM, No Tenderness Neurological/Psych: Oriented x3 ED Course And Treatment - Laboratory Results Result Diagrams: 10/08/16 15:29 10/08/16 15:29 O2 Sat by Pulse Oximetry: 98 (room air ) Medical Decision Making Medical Decision Making: r/o renal colic vs uti/pyleo vs msk pain . review of [place] metal inspector shows multiple narcotic rx including hydromorphone and fentanyl. 450: labs ct neg. pt states feels better. will d/c with outpt f/u. return precautions advised. no saddle anesthesia, neuro intac.t. Disposition - Disposition Referrals: [facility] [Outside] Magdaleno Alcantar MD [Staff Provider] - Gene Espinosa MD [Non-Staff] - Disposition: HOME/ ROUTINE Disposition Time: 05:00 Condition: STABLE Additional Instructions: please follow up with your doctor. return to er with worsening symptoms or concerns. Prescriptions: Naproxen [Naprosyn] 500 mg PO BID PRN #14 tablet PRN Reason: Pain, Mild (1-3) Instructions: Acute Low Back Pain (ED), Flank Pain (ED) - Clinical Impression Clinical Impression: Flank pain - Scribe Statement The provider has reviewed the documentation as recorded by the Scribe Maty Bowles All medical record entries made by the Scribe were at my direction and personally dictated by me. I have reviewed the chart and agree that the record accurately reflects my personal performance of the history, physical exam, medical decision making, and the department course for this patient. I have also personally directed, reviewed, and agree with the discharge instructions and disposition.
[2016-10-08] MEDS ORDERED: Sodium Chloride 0.9% 1,000 ML ONE (15:31)
[2016-10-08 15:33] LABS: BASO # 0.1 K/uL (0.0-0.2); EOS # 0.6 K/uL (0.0-0.7); EOS % 8.2 % (0.0-4.0); HEMOGLOBIN 13.5 g/dL (11.0-16.0); LYMPH # 2.7 K/uL (1.0-4.3); LYMPH % 37.9 % (20.0-40.0); MEAN CELL VOLUME 87.2 fL (81.0-99.0); MEAN CORPUSCULAR HEMOGLOBIN 28.5 pg (27.0-31.0); MEAN CORPUSCULAR HGB CONC 32.7 g/dL (33.0-37.0); MEAN PLATELET VOLUME 8.3 fL (7.2-11.7); MONO # 0.6 K/uL (0.0-0.8); MONO % 8.5 % (0.0-10.0); NEUT # 3.2 K/uL (1.8-7.0); NEUT % 44.4 % (50.0-75.0); RBC 4.74 Mil/uL (3.80-5.20); RED CELL DISTRIBUTION WIDTH 13.8 % (11.5-14.5); WHITE BLOOD COUNT 7.2 K/uL (4.8-10.8)
[2016-10-08 15:41] LABS: ALBUMIN 3.3 g/dL (3.5-5.0)
[2016-10-08 15:44] LABS: GFR AFRICAN-AMERICAN > 60; GFR NON-AFRICAN AMERICAN > 60
[2016-10-08 15:46] LABS: ALB/GLOB RATIO 1.2 (1.0-2.1); ALT/SGPT 26 U/L (9-52); AST/SGOT 21 U/L (14-36); BLOOD UREA NITROGEN 14 mg/dL (7-17); CALCIUM 8.6 mg/dl (8.6-10.4); LIPASE 32 U/L (23-300)
[2016-10-08 15:54] LABS: HCG,QUALITATIVE URINE NEGATIVE (NEGATIVE)
[2016-10-08 15:59] LABS: SQUAMOUS EPITHIAL 26 /hpf (0-5); URINE BILIRUBIN NEGATIVE (NEGATIVE); URINE BLOOD 3+ (NEGATIVE); URINE CLARITY Hazy (Clear); URINE COLOR Yellow (YELLOW); URINE GLUCOSE (UA) NORMAL (Normal); URINE LEUKOCYTE ESTERASE NEG Leu/uL (Negative); URINE NITRATE NEGATIVE (NEGATIVE); URINE PROTEIN NEGATIVE (NEGATIVE); URINE UROBILINOGEN NORMAL mg/dL (0.2-1.0)
--- NOTE | 2016-10-08 16:48 | CT ---
PROCEDURE: CT Abdomen and Pelvis without intravenous contrast HISTORY: left flank pain COMPARISON: Comparison made with prior CT scan abdomen and pelvis 09/08/2016 TECHNIQUE: Contiguous helical/transaxial sections of the abdomen pelvis performed without oral or intravenous contrast material. Additional 2 dimensional sagittal and coronal reformats provided. Radiation dose: Total exam DLP = 367.56 mGy-cm. This CT exam was performed using one or more of the following dose reduction techniques: Automated exposure control, adjustment of the mA and/or kV according to patient size, and/or use of iterative reconstruction technique. FINDINGS: LOWER THORAX: Mild bibasilar atelectasis. Lung richards are otherwise clear without evidence of basilar infiltrate or effusion. LIVER: Liver is upper limits of normal/borderline enlarged measuring approximately 18.2 cm in CC dimension. No obvious hepatic mass collection or calcification. GALLBLADDER AND BILE DUCTS: Gallbladder is is incompletely distended which presumably accounts for thick-walled appearance. Possibility of inflammatory process cannot be excluded. No evidence of intraluminal gallbladder calculi. PANCREAS: Pancreas is poorly seen due to the lack of oral and intravenous contrast material. . No evidence of obvious pancreatic mass collection or calcification. SPLEEN: Spleen exhibits relatively normal size and attenuation pattern. No splenic mass or collection. ADRENALS: No adrenal lesions. KIDNEYS AND URETERS: Kidneys that demonstrate relatively symmetric size. No evidence of nephrolithiasis or hydronephrosis. At least 2 renal cysts are again seen 1 along the anterior mid pole and the other along anteromedial lower pole of unchanged from prior study. No evidence of nephrolithiasis or hydronephrosis. VASCULATURE: Unremarkable. No aortic aneurysm. BOWEL: Evaluation of the bowel is limited due to the lack of oral contrast material. Stomach is distended with air. Visualized loops of small bowel exhibit normal contour and caliber. No evidence small bowel which the. Stool and air seen throughout the colon. No definitive evidence of mural wall thickening APPENDIX: Normal-appearing appendix best seen on axial image number [id number]. PERITONEUM: No gross free intraperitoneal air. No free or loculated fluid collections. LYMPH NODES: Unremarkable. No enlarged lymph nodes. BLADDER: Urinary bladder is incompletely distended which may account for thick-walled appearance. Possibility of a cystitis not excluded. REPRODUCTIVE: Previously noted anterior subserosal fibroid again noted though less well delineated due to the lack of circulating intravenous contrast material. . Questionable small left adnexal cyst estimated approximately 2 cm x 1 cm. BONES: The osseous structures appear grossly intact OTHER FINDINGS: None. IMPRESSION: No evidence of nephrolithiasis or hydronephrosis. Two left renal cysts are again noted though less well seen compared prior contrast-enhanced CT scan. Suspect small left adnexal cyst. Liver is upper limits of normal/borderline enlarged.
[2016-10-08 17:06] VITALS: BP 117/81; PULSE 81; TEMP 98.6
[2016-10-08 20:17] VITALS: O2SAT 98
== END 2016-10-08 17:32 | disposition home or self-care (01) ==
LOC: C.ER 14:30
DX: R10.30 Lower abdominal pain, unspecified (principal)
CPT/HCPCS: 74176; 80053; 81001; 83690; 84703; 85025; 85610; 85730; 96361; 96374; 96375; 99285; J1885; J2405; J7040

== ENCOUNTER 2017-01-31 14:04 | Emergency (ER) | payer OTHER ==
[2017-01-31 14:04] VITALS: BMI 27.4
[2017-01-31 14:14] VITALS: TEMP 97.7
--- NOTE | 2017-01-31 15:27 | C.PDOC ---
History Of Present Illness 41 yr old female presents to the ER for superficial contusion to the left scalp , sustained early today. Patient states 1hr later she felt dizzy and anxious. Reports history of chronic pain and anxiety. Denies fever, vision changes, nausea, vomiting, weakness or numbness. - HPI Time Seen by Provider: 01/31/17 15:21 Chief Complaint (Nursing): Trauma History Per: Patient History/Exam Limitations: no limitations Onset/Duration Of Symptoms: Sudden Onset (Earlier today) Past Medical History Reviewed: Historical Data, Nursing Documentation, Vital Signs Vital Signs: Last Vital Signs Temp 97.7 F 01/31/17 14:13 Pulse 89 01/31/17 15:34 Resp 18 01/31/17 15:34 BP 126/72 01/31/17 15:34 Pulse Ox 98 01/31/17 15:34 - Medical History PMH: Anxiety, Arthritis, Asthma, Back Problems (Herniated Disc), Depression, Chronic Pain (Back) Surgical History: Back Surgery () Family History: States: No Known Family Hx - Social History Hx Tobacco Use: Yes Hx Alcohol Use: No Hx Substance Use: No - Immunization History Hx Tetanus Toxoid Vaccination: No Hx Influenza Vaccination: No (2015) Hx Pneumococcal Vaccination: No Review Of Systems Except As Marked, All Systems Reviewed And Found Negative. Constitutional: Negative for: Fever Eyes: Negative for: Vision Change Gastrointestinal: Negative for: Nausea, Vomiting Skin: Positive for: Other ((+) Superficial contusion to the left scalp) Neurological: Negative for: Weakness, Numbness Physical Exam - Physical Exam Appears: Non-toxic, No Acute Distress Skin: Warm, Dry, Other (Superficial contusion to the left occipital) Head: Normacephalic Eye(s): bilateral: Normal Inspection, PERRL, EOMI Oral Mucosa: Moist Chest: Symmetrical, No Tenderness Cardiovascular: Rhythm Regular, No Murmur Respiratory: Normal Breath Sounds, No Rales, No Rhonchi, No Stridor, No Wheezing Extremity: Normal ROM, No Swelling Neurological/Psych: Oriented x3, Normal Speech, Normal Motor ED Course And Treatment O2 Sat by Pulse Oximetry: 96 (RA) Pulse Ox Interpretation: Normal Medical Decision Making Medical Decision Making: superficial contusion to L occiput, no injury noted ? mild vasovagal later in the day, but normal now. LOW susp of intracranial injury reassured. [facility] reviewed, extensive narcotics and benzo regimen appreciated, consider anxiety issues. Disposition Doctor Will See Patient In The: Office Counseled Patient/Family Regarding: Studies Performed, Diagnosis - Disposition Referrals: Farzana Cosby MD [Staff Provider] - Disposition: HOME/ ROUTINE Disposition Time: 15:29 Condition: GOOD Additional Instructions: ice packs to scalp Continue your normal pain medication regimen Instructions: Scalp Contusion in Adults (ED) Forms: [facility] (Irish) - Clinical Impression Clinical Impression: Scalp contusion - Scribe Statement The provider has reviewed the documentation as recorded by the Scribe Alberta Rodriguez Provider Attestation: All medical record entries made by the Graceibe were at my direction and personally dictated by me. I have reviewed the chart and agree that the record accurately reflects my personal performance of the history, physical exam, medical decision making, and the department course for this patient. I have also personally directed, reviewed, and agree with the discharge instructions and disposition.
[2017-01-31 15:34] VITALS: BP 126/72; PULSE 89; RESP 18
[2017-01-31 16:53] VITALS: O2SAT 96
== END 2017-01-31 15:35 | disposition home or self-care (01) ==
LOC: C.ER 14:04
DX: S00.03XA Contusion of scalp, initial encounter (principal); X58.XXXA Exposure to other specified factors, initial encounter

== ENCOUNTER 2018-08-27 11:21 | Emergency (ER) | payer OTHER ==
[2018-08-27 11:21] VITALS: BMI 27.4
[2018-08-27 11:27] VITALS: BP 153/82; PULSE 98; TEMP 99.1; O2SAT 97
[2018-08-27 13:15] LABS: HCG,QUALITATIVE URINE NEGATIVE (NEGATIVE)
[2018-08-27] MEDS ORDERED: Sodium Chloride 0.9% 1,000 ML IV ONE (13:15)
[2018-08-27 13:17] LABS: SQUAMOUS EPITHIAL 3 /hpf (0-5); URINE BACTERIA FEW (<OCC); URINE BILIRUBIN NEGATIVE (NEGATIVE); URINE BLOOD NEGATIVE (NEGATIVE); URINE CLARITY Hazy (Clear); URINE COLOR Amber (YELLOW); URINE GLUCOSE (UA) NORMAL (Normal); URINE LEUKOCYTE ESTERASE TRACE Leu/uL (Negative); URINE PROTEIN NEGATIVE (NEGATIVE)
[2018-08-27 14:00] LABS: BASO # 0.1 K/uL (0.0-0.2); BASO % 0.8 % (0.0-2.0); EOS # 0.2 K/uL (0.0-0.7); EOS % 2.2 % (0.0-4.0); HEMOGLOBIN 13.8 g/dL (11.0-16.0); LYMPH # 2.2 K/uL (1.0-4.3); LYMPH % 29.9 % (20.0-40.0); MEAN CELL VOLUME 87.7 fL (81.0-99.0); MEAN CORPUSCULAR HEMOGLOBIN 30.1 pg (27.0-31.0); MEAN CORPUSCULAR HGB CONC 34.3 g/dL (33.0-37.0); MEAN PLATELET VOLUME 8.4 fL (7.2-11.7); MONO # 0.9 K/uL (0.0-0.8); MONO % 11.4 % (0.0-10.0); NEUT # 4.2 K/uL (1.8-7.0); NEUT % 55.7 % (50.0-75.0); NRBC % 0.1 % (0.0-2.0); RBC 4.58 Mil/uL (3.80-5.20); RED CELL DISTRIBUTION WIDTH 13.7 % (11.5-14.5); WHITE BLOOD COUNT 7.5 K/uL (4.8-10.8)
[2018-08-27 14:10] LABS: BLOOD UREA NITROGEN 14 mg/dL (7-17); CALCIUM 8.6 mg/dl (8.6-10.4); GFR NON-AFRICAN AMERICAN > 60
[2018-08-27 14:23] LABS: ALB/GLOB RATIO 1.2 (1.0-2.1); ALBUMIN 3.7 g/dL (3.5-5.0); ALT/SGPT 18 U/L (9-52); AST/SGOT 24 U/L (14-36)
--- NOTE | 2018-08-27 16:02 | C.PDOC ---
History Of Present Illness 43-year-old female presents to the ED for evaluation of abdominal pain, urinary symptoms, nausea, vomiting and genital rash. Patient reports a prior history of shingles. Patient states she has not been sexually active in a long time. She denies fever, chills, diarrhea. Time Seen by Provider: 08/27/18 12:07 Chief Complaint (Nursing): Female Genitourinary History Per: Patient History/Exam Limitations: no limitations Onset/Duration Of Symptoms: Hrs Current Symptoms Are (Timing): Still Present Associated Symptoms: Nausea, Vomiting, Urinary Symptoms. denies: Fever, Chills, Diarrhea Additional History Per: Patient Past Medical History Reviewed: Historical Data, Nursing Documentation, Vital Signs Vital Signs: Last Vital Signs Temp 99.1 F 08/27/18 11:23 Pulse 98 H 08/27/18 11:23 Resp 18 08/27/18 11:23 BP 153/82 H 08/27/18 11:23 Pulse Ox 97 08/27/18 11:23 Primary Care Provider: Farzana Cosby - Medical History PMH: Anxiety, Arthritis, Asthma, Back Problems (Herniated Disc), Depression, Chronic Pain (Back) Denies: Chronic Kidney Disease Surgical History: Back Surgery () Family History: States: Unknown Family Hx - Social History Hx Tobacco Use: Yes Hx Alcohol Use: No Hx Substance Use: No - Immunization History Hx Tetanus Toxoid Vaccination: No Hx Influenza Vaccination: No (2015) Hx Pneumococcal Vaccination: No Review Of Systems Constitutional: Negative for: Fever, Chills Gastrointestinal: Positive for: Nausea, Vomiting, Abdominal Pain. Negative for: Diarrhea Genitourinary: Positive for: Other (urinary symptoms ) Physical Exam - Physical Exam Appears: Non-toxic, No Acute Distress, Other (uncomfortable ) Skin: Normal Color, Warm, Dry Head: Atraumatic, Normacephalic Oral Mucosa: Moist Neck: Supple Chest: Symmetrical, No Deformity, No Tenderness Cardiovascular: Rhythm Regular, No Murmur Respiratory: Normal Breath Sounds, No Rales, No Rhonchi, No Wheezing Gastrointestinal/Abdominal: Soft, No Tenderness, No Guarding, No Rebound Back: No CVA Tenderness Pelvic: Other (left perineal area: quarter-sized patch of unroofed vessicles that are exquisitely tender to palpation ) Extremity: Normal ROM, Capillary Refill (less than 2 seconds ) Neurological/Psych: Oriented x3, Normal Speech, Normal Cognition ED Course And Treatment - Laboratory Results Result Diagrams: 08/27/18 13:52 08/27/18 13:52 Lab Results: Total Bilirubin 0.6 mg/dL (0.2-1.3) 08/27/18 13:52 AST 24 U/L (14-36) 08/27/18 13:52 ALT 18 U/L (9-52) 08/27/18 13:52 Alkaline Phosphatase 49 U/L (38-126) 08/27/18 13:52 Total Protein 6.7 g/dL (6.3-8.3) 08/27/18 13:52 Albumin 3.7 g/dL (3.5-5.0) 08/27/18 13:52 Globulin 3.0 gm/dL (2.2-3.9) 08/27/18 13:52 Albumin/Globulin Ratio 1.2 (1.0-2.1) 08/27/18 13:52 Urine Color [place] (YELLOW) 08/27/18 13:00 Urine Clarity Hazy (Clear) 08/27/18 13:00 Urine pH 5.0 (5.0-8.0) 08/27/18 13:00 Ur Specific [place] 1.025 (1.003-1.030) 08/27/18 13:00 Urine Protein Negative mg/dL (NEGATIVE) 08/27/18 13:00 Urine Glucose (UA) Normal mg/dL (Normal) 08/27/18 13:00 Urine Ketones Negative mg/dL (NEGATIVE) 08/27/18 13:00 Urine Blood Negative (NEGATIVE) 08/27/18 13:00 Urine Nitrate Negative (NEGATIVE) 08/27/18 13:00 Urine Bilirubin Negative (NEGATIVE) 08/27/18 13:00 Urine Urobilinogen 2.0 mg/dL (0.2-1.0) H 08/27/18 13:00 Ur Leukocyte Esterase Trace Idania/uL (Negative) 08/27/18 13:00 Urine WBC (Auto) 9 /hpf (0-5) H 08/27/18 13:00 Urine RBC (Auto) 2 /hpf (0-3) 08/27/18 13:00 Ur Squamous Epith Cells 3 /hpf (0-5) 08/27/18 13:00 Urine Bacteria Few (<OCC) H 08/27/18 13:00 Urine HCG, Qual Negative (NEGATIVE) 08/27/18 13:00 Urine HCG, Qual Negative (NEGATIVE) 08/27/18 13:00 O2 Sat by Pulse Oximetry: 97 (on RA ) Pulse Ox Interpretation: Normal Medical Decision Making Medical Decision Making: Bloodwork and urinalysis ordered and reviewed. Toradol IVP, Valtrex PO, Zofran IVP, and IV Fluids given. pt feeling much better after toradol, iv fluids and zofran. tolerates fluids now. Disposition Counseled Patient/Family Regarding: Studies Performed, Diagnosis, Need For Followup, Rx Given - Disposition [facility]] Disposition: HOME/ ROUTINE Disposition Time: 16:01 Condition: GOOD Additional Instructions: Please take antibiotic and antiviral medications. Follow up with Dr Moe and your jboss developer in 1-2 days. Apply small amount of lidocaine jelly with clean qtip to painful area in groin 3-4 times a day. Prescriptions: Sulfamethoxazole/Trimethoprim [Bactrim 400-80 mg Tablet] 1 each PO BID #6 tablet Valacyclovir HCl [Valtrex] 1 gm PO BID #20 tablet Instructions: Urinary Tract Infection, Adult (DC), Genital Herpes (DC) Forms: [facility] (Citizen Of [place]), General Discharge Instructions - Clinical Impression Clinical Impression: Genital herpes, UTI (urinary tract infection) - PA / VOLUNTEER SPECIALIST / Resident Statement MD/DO has reviewed & agrees with the documentation as recorded. - Scribe Statement The provider has reviewed the documentation as recorded by the Scribe (Hyacinth Pierre) All medical record entries made by the Scribe were at my direction and personally dictated by me. I have reviewed the chart and agree that the record accurately reflects my personal performance of the history, physical exam, medical decision making, and the department course for this patient. I have also personally directed, reviewed, and agree with the discharge instructions and disposition.
[2018-08-27] MEDS ORDERED: Lidocaine 2% Jelly (Uro-Jet) ONE (16:11)
[2018-08-27] MEDS ORDERED: Lidocaine 2% Jelly (Uro-Jet) TOP ONE (16:11)
[2018-08-27 16:15] VITALS: RESP 20
== END 2018-08-27 16:14 | disposition home or self-care (01) ==
LOC: C.ER 11:21
DX: N39.0 Urinary tract infection, site not specified (principal); A60.00 Herpesviral infection of urogenital system, unspecified; Z72.0 Tobacco use
CPT/HCPCS: 80053; 81001; 84703; 85025; 87086; 96361; 96374; 96375; 99285; J1885; J2405; J7030